=== PATIENT | female | born 1945 | race Caucasian/White ===

== ENCOUNTER 2019-08-29 14:21 | Emergency (ER) | payer OTHER ==
[~2019-08-29] VITALS: Ht 157.5 cm; Wt 90.7 kg
[2019-08-29] MEDS ORDERED: FOLIC ACID20 MG PO (14:37)
[2019-08-29] MEDS ORDERED: METFORMIN HCL500 M3 PO (14:37)
[2019-08-29] MEDS ORDERED: ZESTRIL40 M1 PO (14:37)
[2019-08-29] MEDS ORDERED: VITAMIN B12-FO1 EACH PO (14:38)
[2019-08-29] MEDS ORDERED: VITAMIN D32000 UNI1 PO (14:38)
[2019-08-29] MEDS ORDERED: LIPITOR20 MG PO (14:38)
== END 2019-08-29 19:25 | disposition home or self-care (01) ==
LOC: ER 14:21
DX: N93.8 Other specified abnormal uterine and vaginal bleeding (principal); C54.1 Malignant neoplasm of endometrium

== ENCOUNTER → 2019-09-10 | Emergency (ER) | payer OTHER ==
[~2019-09-10] VITALS: Ht 157.5 cm; Wt 86.2 kg
[~2019-09-10] MED LIST: FOLIC ACID20 MG PO; LIPITOR20 MG PO; METFORMIN HCL500 M3 PO; VITAMIN B12-FO1 EACH PO; VITAMIN D32000 UNI1 PO; ZESTRIL40 M1 PO
== END | disposition home or self-care (01) ==
LOC: ER 09:21
DX: L76.82 Other postprocedural complications of skin and subcutaneous tissue (principal); R60.0 Localized edema; Z90.710 Acquired absence of both cervix and uterus